=== PATIENT | male | born 1940 | race Caucasian/White ===

== ENCOUNTER 2020-09-02 15:22 | Observation (INO) ==
[2020-09-02] MEDS ORDERED: Ketorolac 30 MG/ML VIAL IVP ONE (15:25)
[2020-09-02] MEDS ORDERED: *HR* Metoprolol 5 MG/5 ML VIAL IVP ONE (15:25)
[2020-09-02] MEDS ORDERED: Nitroglycerin 1 INCH/GM PACKET TP ONE (15:25)
[2020-09-02] MEDS ORDERED: Aspirin 81 MG TAB.CHEW PO ONE (15:25)
[2020-09-02] MEDS ORDERED: Morphine Sulfate 2 MG/ML SYRINGE IVP ONE ×2 (15:25→15:28)
[2020-09-02] MEDS ORDERED: Ondansetron 4 MG/2 ML VIAL IVP ONE (15:25)
[2020-09-02] MEDS ORDERED: 0.9 % Sodium Chloride 500 ML IVC ONE (15:25)
[2020-09-02 15:52] LABS: Basophils % 0.3 %; Eosinophils % 0.1 %; Hematocrit 43.2 % (37.5-50.1); Hemoglobin 14.6 g/dL (12.9-16.9); INR 1.1; Immature Granulocytes % 0.5 % (0-4); Lymphocytes # 0.7 K/mcL (0.6-4.6); Lymphocytes % 6.3 %; Mean Corpuscular HGB Conc 33.8 g/dL (31.6-35.5); Mean Corpuscular Hemoglobin 27.3 pg (28.0-33.3); Mean Corpuscular Volume 80.9 fL (83.0-100.0); Mean Platelet Volume 9.9 fL (9.4-12.4); Monocytes # 0.2 K/mcL (0.0-1.3); Neutrophils # 10.1 K/mcL (1.6-8.9); Platelet Count 289 K/mcL (140-400); Prothrombin Time 12.5 Seconds (9.4-12.1); Red Blood Count 5.34 M/mcL (4.19-5.50); Red Cell Distribution Width 13.5 % (11.5-14.5); Segmented Neutrophils % 90.8 %; White Blood Count 11.1 K/mcL (4.3-11.1)
[2020-09-02 15:54] LABS: Activated Partial Thrombo Time 26.7 Seconds (26.0-36.0)
[2020-09-02 16:03] LABS: BUN/Creatinine Ratio 22 (6-26); Blood Urea Nitrogen 46 mg/dL (8-23); Calcium 9.4 mg/dL (8.6-10.3); Carbon Dioxide 22 mEq/L (23-29); Chloride 98 mEq/L (98-107); Glucose 375 mg/dL (70-105); Osmolality,Calculated 307 (280-300); Potassium 4.3 mEq/L (3.5-5.1); Sodium 135 mEq/L (136-145); Troponin I < 0.03 ng/mL (< 0.04); eGFR For African Americans 37 (> 60); eGFR For Non-African Americans 30 (> 60)
[2020-09-02] MEDS ORDERED: 0.9 % Sodium Chloride 1,000 ML IVC ONE (16:13)
[2020-09-02] MEDS ORDERED: *HR* Labetalol 20 MG/4 ML SYRINGE IVP ONE (17:35)
[2020-09-02 18:10] LABS: Bilirubin,Urine Negative (Negative); Blood,Urine Small (Negative); Clarity,Urine Clear (Clear); Color,Urine Yellow (Yellow); Glucose,Urine (UA) >=1000 mg/dL (Normal); Ketones,Urine 15 mg/dL (Negative); Leukocyte Esterase,Urine Negative (Negative); Nitrite,Urine Negative (Negative); PH,Urine 5.5 pH Units (5.0-8.0); Protein,Urine >=300 mg/dL (Neg-Trace); Urobilinogen,Urine Normal (Normal)
[2020-09-02 18:19] LABS: Budding Yeast,Urine Few per hpf (None Seen); Squamous Epithelial Cell,Urine Few per hpf (None-Few); WBC,Urine 0-3 per hpf (0-3)
[2020-09-02] MEDS ORDERED: 0.9 % Sodium Chloride 1,000 ML IVC SCH ×2 (21:15→22:03)
[2020-09-02] MEDS ORDERED: *HR* Dextrose 50 % in Water (Vial) 50 ML VIAL IVP PRN ×2 (21:32→22:03)
[2020-09-02] MEDS ORDERED: D5% in Water 1,000 ML IVC PRN ×2 (21:32→22:03)
[2020-09-02] MEDS ORDERED: Dextrose Gel 15 GM/37.5 ML TUBE PO PRN ×4 (21:32→22:03)
[2020-09-02] MEDS ORDERED: Ondansetron 4 MG/2 ML VIAL IVP PRN (22:03)
[2020-09-02] MEDS ORDERED: *HR* Promethazine 25 MG/ML VIAL IM PRN (22:03)
[2020-09-02] MEDS ORDERED: Ondansetron ODT 4 MG TAB.RAPDIS SL PRN (22:03)
[2020-09-02] MEDS ORDERED: Naloxone 0.4 MG/ML INJ IVP PRN (22:03)
[2020-09-02] MEDS: 0.9 % Sodium Chloride 2,000 ML IVC SCH (22:32)
[2020-09-03] MEDS ORDERED: Insulin LISPRO 300 UNITS/3 ML VIAL SUBQ SCH
[2020-09-03] MEDS: Insulin LISPRO 300 UNITS/3 ML VIAL SUBQ SCH ×3 (00:31→12:15)
[2020-09-03 03:13] LABS: Basophils % 0.2 %; Eosinophils % 0.1 %; Hematocrit 36.2 % (37.5-50.1); Hemoglobin 12.3 g/dL (12.9-16.9); Immature Granulocytes % 1.2 % (0-4); Lymphocytes # 0.9 K/mcL (0.6-4.6); Lymphocytes % 9.1 %; Mean Corpuscular Hemoglobin 27.7 pg (28.0-33.3); Mean Corpuscular Volume 81.5 fL (83.0-100.0); Mean Platelet Volume 9.7 fL (9.4-12.4); Monocytes # 0.7 K/mcL (0.0-1.3); Monocytes % 7.4 %; Neutrophils # 8.2 K/mcL (1.6-8.9); Platelet Count 203 K/mcL (140-400); Red Blood Count 4.44 M/mcL (4.19-5.50); Red Cell Distribution Width 13.8 % (11.5-14.5)
[2020-09-03 03:18] LABS: Calcium 8.4 mg/dL (8.6-10.3); Potassium 3.9 mEq/L (3.5-5.1)
[2020-09-03] MEDS: 0.9 % Sodium Chloride 2,000 ML IVC SCH (06:32)
[2020-09-03 06:47] VITALS: BP 160/67
== END 2020-09-03 13:00 | disposition home or self-care (01) ==
LOC: EMEROOGRE 15:22 → INPGRE 15:22
PROVIDERS: ADMIT Internal Medicine; ATTEND Internal Medicine

== ENCOUNTER 2020-11-15 08:43 | Inpatient (IN) ==
[2020-11-15] MEDS ORDERED: Dextrose Gel 15 GM/37.5 ML TUBE PO PRN ×2 (13:26)
[2020-11-15] MEDS ORDERED: D5% in Water 1,000 ML IVC PRN (13:26)
[2020-11-15] MEDS ORDERED: *HR* Dextrose 50 % in Water (Vial) 50 ML VIAL IVP PRN (13:26)
[2020-11-15] MEDS ORDERED: *HR* OxyCODONE Immed Rel 5 MG TABLET PO PRN ×2 (13:27→15:12)
[2020-11-15] MEDS ORDERED: Ondansetron ODT 4 MG TAB.RAPDIS SL PRN (13:27)
[2020-11-15] MEDS: Insulin LISPRO 300 UNITS/3 ML VIAL SUBQ SCH ×2 (16:47→21:16)
[2020-11-15] MEDS ORDERED: Insulin DETEMIR 100 UNIT/ML per UNIT SUBQ ONE (21:00)
[2020-11-15] MEDS: Apixaban 5 MG TABLET PO SCH (21:18)
[2020-11-15] MEDS: Melatonin 3 MG TABLET PO PRN (21:18)
[2020-11-15] MEDS: APREMILAST 30 MG PO SCH (21:24)
[2020-11-15] MEDS: Sennosides/Docusate Sodium TABLET PO SCH (21:25)
[2020-11-16 05:11] LABS: Basophils % 0.3 %; Eosinophils # 0.4 K/mcL (0.0-0.6); Eosinophils % 3.3 %; Hematocrit 28.9 % (37.5-50.1); Hemoglobin 9.3 g/dL (12.9-16.9); Immature Granulocytes % 0.7 % (0-4); Lymphocytes # 1.3 K/mcL (0.6-4.6); Lymphocytes % 11.6 %; Mean Corpuscular HGB Conc 32.2 g/dL (31.6-35.5); Monocytes # 0.7 K/mcL (0.0-1.3); Monocytes % 6.3 %; Platelet Count 344 K/mcL (140-400); Red Blood Count 3.32 M/mcL (4.19-5.50); Red Cell Distribution Width 18.3 % (11.5-14.5); Segmented Neutrophils % 77.8 %; White Blood Count 11.5 K/mcL (4.3-11.1)
[2020-11-16 05:28] LABS: Albumin 2.6 g/dL (3.5-5.7); Albumin/Globulin Ratio 0.8 (1.1-2.2); Bilirubin,Total 0.4 mg/dL (0.3-1.0); Calcium 8.6 mg/dL (8.6-10.3); Globulin 3.4 g/dL (2.4-3.5); Magnesium 1.7 mg/dL (1.6-2.6); Potassium 4.1 mEq/L (3.5-5.1)
[2020-11-16 08:09] LABS: Estimated Average Glucose 183 mg/dl
[2020-11-16] MEDS: Insulin LISPRO 300 UNITS/3 ML VIAL SUBQ SCH ×4 (09:22→20:16)
[2020-11-16] MEDS: Aspirin 81 MG TAB.CHEW PO SCH (09:23)
[2020-11-16] MEDS: Apixaban 5 MG TABLET PO SCH ×2 (09:23→20:30)
[2020-11-16] MEDS: Isosorbide MONOnitrate (24 HR) 30 MG TAB.ER.24H PO SCH (09:23)
[2020-11-16] MEDS: Sennosides/Docusate Sodium TABLET PO SCH ×2 (09:23→20:32)
[2020-11-16] MEDS: *HR* Amiodarone 200 MG TABLET PO SCH (09:23)
[2020-11-16] MEDS: APREMILAST 30 MG PO SCH ×2 (09:24→20:33)
[2020-11-16] MEDS: (Empagliflozin [Jardiance] 25 MG Tablet) PO SCH (09:24)
[2020-11-16] MEDS: OLANZapine 5 MG TAB.RAPDIS PO PRN (09:31)
[2020-11-16] MEDS: *HR* OxyCODONE Immed Rel 5 MG TABLET PO PRN ×2 (09:31→20:31)
[2020-11-16] MEDS: Insulin DETEMIR 100 UNIT/ML X5UNITS SUBQ SCH ×2 (09:32→20:33)
[2020-11-16] MEDS: Melatonin 3 MG TABLET PO PRN (20:32)
[2020-11-17] MEDS: *HR* OxyCODONE Immed Rel 5 MG TABLET PO PRN (04:11)
[2020-11-17] MEDS: Sennosides/Docusate Sodium TABLET PO SCH (07:46)
[2020-11-17] MEDS: Insulin LISPRO 300 UNITS/3 ML VIAL SUBQ SCH ×5 (07:52→20:23)
[2020-11-17] MEDS: Aspirin 81 MG TAB.CHEW PO SCH (07:52)
[2020-11-17] MEDS: *HR* Amiodarone 200 MG TABLET PO SCH (07:52)
[2020-11-17] MEDS: Isosorbide MONOnitrate (24 HR) 30 MG TAB.ER.24H PO SCH (07:52)
[2020-11-17] MEDS: Apixaban 5 MG TABLET PO SCH ×2 (07:52→20:22)
[2020-11-17] MEDS: APREMILAST 30 MG PO SCH (07:53)
[2020-11-17] MEDS: Insulin DETEMIR 100 UNIT/ML X5UNITS SUBQ SCH ×2 (07:53→20:23)
[2020-11-17] MEDS: (Empagliflozin [Jardiance] 25 MG Tablet) PO SCH (07:53)
[2020-11-17] MEDS: Melatonin 3 MG TABLET PO PRN (20:22)
[2020-11-18] MEDS: APREMILAST 30 MG PO SCH ×3 (05:45→21:59)
[2020-11-18] MEDS: Sennosides/Docusate Sodium TABLET PO SCH ×3 (05:45→21:59)
[2020-11-18 06:02] LABS: Basophils # 0.1 K/mcL (0.0-0.2); Basophils % 0.4 %; Eosinophils # 0.4 K/mcL (0.0-0.6); Hemoglobin 7.9 g/dL (12.9-16.9); Immature Granulocytes % 0.4 % (0-4); Lymphocytes # 1.1 K/mcL (0.6-4.6); Lymphocytes % 9.2 %; Mean Corpuscular HGB Conc 31.6 g/dL (31.6-35.5); Mean Corpuscular Volume 88.7 fL (83.0-100.0); Mean Platelet Volume 9.5 fL (9.4-12.4); Monocytes # 0.7 K/mcL (0.0-1.3); Monocytes % 5.5 %; Neutrophils # 9.9 K/mcL (1.6-8.9); Platelet Count 336 K/mcL (140-400); Red Blood Count 2.82 M/mcL (4.19-5.50); Red Cell Distribution Width 18.5 % (11.5-14.5); Segmented Neutrophils % 81.5 %; White Blood Count 12.2 K/mcL (4.3-11.1)
[2020-11-18 06:39] LABS: Calcium 7.9 mg/dL (8.6-10.3); Potassium 3.9 mEq/L (3.5-5.1)
[2020-11-18] MEDS: Insulin LISPRO 300 UNITS/3 ML VIAL SUBQ SCH ×4 (07:55→20:09)
[2020-11-18] MEDS: Aspirin 81 MG TAB.CHEW PO SCH (08:44)
[2020-11-18] MEDS: *HR* Amiodarone 200 MG TABLET PO SCH (08:44)
[2020-11-18] MEDS: Insulin DETEMIR 100 UNIT/ML X5UNITS SUBQ SCH ×2 (08:44→20:08)
[2020-11-18] MEDS: Isosorbide MONOnitrate (24 HR) 30 MG TAB.ER.24H PO SCH (08:44)
[2020-11-18] MEDS: Apixaban 5 MG TABLET PO SCH ×2 (08:44→20:08)
[2020-11-18] MEDS: (Empagliflozin [Jardiance] 25 MG Tablet) PO SCH (08:44)
[2020-11-18 16:18] LABS: Hematocrit 23.7 % (37.5-50.1); Hemoglobin 7.4 g/dL (12.9-16.9)
[2020-11-18 19:13] LABS: Iron < 10 mcg/dL (65-175); Transferrin 151 mg/dL (203-362)
[2020-11-18 19:38] LABS: Folate 8.6 ng/mL (3.0-16.0)
[2020-11-18] MEDS: Melatonin 3 MG TABLET PO PRN (20:08)
[2020-11-18] MEDS: *HR* OxyCODONE Immed Rel 5 MG TABLET PO PRN (21:59)
[2020-11-19] MEDS: *HR* OxyCODONE Immed Rel 5 MG TABLET PO PRN (06:08)
[2020-11-19 06:09] LABS: Basophils % 0.4 %; Eosinophils # 0.4 K/mcL (0.0-0.6); Eosinophils % 4.5 %; Hematocrit 24.3 % (37.5-50.1); Hemoglobin 7.6 g/dL (12.9-16.9); Immature Granulocytes % 0.4 % (0-4); Lymphocytes # 1.1 K/mcL (0.6-4.6); Lymphocytes % 12.1 %; Mean Corpuscular HGB Conc 31.3 g/dL (31.6-35.5); Mean Corpuscular Hemoglobin 27.8 pg (28.0-33.3); Mean Platelet Volume 9.7 fL (9.4-12.4); Monocytes # 0.6 K/mcL (0.0-1.3); Monocytes % 6.4 %; Neutrophils # 7.1 K/mcL (1.6-8.9); Platelet Count 322 K/mcL (140-400); Red Blood Count 2.73 M/mcL (4.19-5.50); Red Cell Distribution Width 18.1 % (11.5-14.5); Segmented Neutrophils % 76.2 %; White Blood Count 9.3 K/mcL (4.3-11.1)
[2020-11-19] MEDS: Insulin LISPRO 300 UNITS/3 ML VIAL SUBQ SCH ×2 (09:22→21:13)
[2020-11-19] MEDS: (Empagliflozin [Jardiance] 25 MG Tablet) PO SCH (09:23)
[2020-11-19] MEDS ORDERED: Sennosides/Docusate Sodium TABLET PO PRN (10:21)
[2020-11-19] MEDS: Aspirin 81 MG TAB.CHEW PO SCH (10:25)
[2020-11-19] MEDS: *HR* Amiodarone 200 MG TABLET PO SCH (10:25)
[2020-11-19] MEDS: Isosorbide MONOnitrate (24 HR) 30 MG TAB.ER.24H PO SCH (10:25)
[2020-11-19] MEDS: Apixaban 5 MG TABLET PO SCH ×2 (10:25→21:10)
[2020-11-19] MEDS: APREMILAST 30 MG PO SCH ×2 (10:26→21:13)
[2020-11-19] MEDS: Sennosides/Docusate Sodium TABLET PO SCH (10:27)
[2020-11-19] MEDS: Insulin DETEMIR 100 UNIT/ML X5UNITS SUBQ SCH ×2 (10:41→21:12)
[2020-11-19] MEDS: Melatonin 3 MG TABLET PO PRN (21:10)
[2020-11-20] MEDS: Insulin LISPRO 300 UNITS/3 ML VIAL SUBQ SCH ×6 (00:44→20:56)
[2020-11-20] MEDS: Aspirin 81 MG TAB.CHEW PO SCH (08:38)
[2020-11-20] MEDS: Apixaban 5 MG TABLET PO SCH ×2 (08:38→20:54)
[2020-11-20] MEDS: (Empagliflozin [Jardiance] 25 MG Tablet) PO SCH (08:39)
[2020-11-20] MEDS: APREMILAST 30 MG PO SCH ×2 (08:39→22:23)
[2020-11-20] MEDS: Isosorbide MONOnitrate (24 HR) 30 MG TAB.ER.24H PO SCH (08:39)
[2020-11-20] MEDS: Insulin DETEMIR 100 UNIT/ML X5UNITS SUBQ SCH ×2 (08:39→20:56)
[2020-11-20] MEDS: *HR* Amiodarone 200 MG TABLET PO SCH (08:39)
[2020-11-20] MEDS ORDERED: (Dulaglutide [Trulicity] 1.5 MG/0.5 ML Pen.Injctr) SQ SCH (09:00)
[2020-11-20 11:27] LABS: Basophils # 0.1 K/mcL (0.0-0.2); Basophils % 0.5 %; Eosinophils # 0.4 K/mcL (0.0-0.6); Eosinophils % 3.9 %; Hematocrit 27.2 % (37.5-50.1); Hemoglobin 8.7 g/dL (12.9-16.9); Immature Granulocytes % 0.4 % (0-4); Lymphocytes # 1.1 K/mcL (0.6-4.6); Lymphocytes % 10.2 %; Mean Corpuscular Hemoglobin 28.3 pg (28.0-33.3); Mean Corpuscular Volume 88.6 fL (83.0-100.0); Mean Platelet Volume 9.3 fL (9.4-12.4); Monocytes # 0.5 K/mcL (0.0-1.3); Monocytes % 5.2 %; Neutrophils # 8.3 K/mcL (1.6-8.9); Platelet Count 382 K/mcL (140-400); Red Blood Count 3.07 M/mcL (4.19-5.50); Red Cell Distribution Width 17.9 % (11.5-14.5); Segmented Neutrophils % 79.8 %; White Blood Count 10.4 K/mcL (4.3-11.1)
[2020-11-20 11:44] LABS: Calcium 8.7 mg/dL (8.6-10.3); Potassium 4.4 mEq/L (3.5-5.1)
[2020-11-20] MEDS: OLANZapine 5 MG TAB.RAPDIS PO PRN (20:55)
[2020-11-20] MEDS: *HR* OxyCODONE Immed Rel 5 MG TABLET PO PRN (23:05)
[2020-11-21] MEDS: Insulin LISPRO 300 UNITS/3 ML VIAL SUBQ SCH ×4 (08:56→19:57)
[2020-11-21] MEDS: Insulin DETEMIR 100 UNIT/ML X5UNITS SUBQ SCH ×2 (09:03→19:57)
[2020-11-21] MEDS: Apixaban 5 MG TABLET PO SCH ×2 (09:03→19:57)
[2020-11-21] MEDS: APREMILAST 30 MG PO SCH ×2 (09:03→20:04)
[2020-11-21] MEDS: *HR* Amiodarone 200 MG TABLET PO SCH (09:03)
[2020-11-21] MEDS: Isosorbide MONOnitrate (24 HR) 30 MG TAB.ER.24H PO SCH (09:03)
[2020-11-21] MEDS: Aspirin 81 MG TAB.CHEW PO SCH (09:03)
[2020-11-21] MEDS: (Empagliflozin [Jardiance] 25 MG Tablet) PO SCH (09:03)
[2020-11-21] MEDS: polyethylene glycoL 3350 17 GM POWD.PACK PO SCH (17:12)
[2020-11-21] MEDS: *HR* OxyCODONE Immed Rel 5 MG TABLET PO PRN (19:56)
[2020-11-21] MEDS: Melatonin 3 MG TABLET PO PRN (19:57)
[2020-11-21] MEDS: Sennosides/Docusate Sodium TABLET PO SCH (19:57)
[2020-11-21] MEDS: OLANZapine 5 MG TAB.RAPDIS PO PRN (19:57)
[2020-11-22] MEDS: Isosorbide MONOnitrate (24 HR) 30 MG TAB.ER.24H PO SCH (08:42)
[2020-11-22] MEDS: Aspirin 81 MG TAB.CHEW PO SCH (08:42)
[2020-11-22] MEDS: Sennosides/Docusate Sodium TABLET PO SCH ×2 (08:42→19:53)
[2020-11-22] MEDS: *HR* Amiodarone 200 MG TABLET PO SCH (08:42)
[2020-11-22] MEDS: Apixaban 5 MG TABLET PO SCH ×2 (08:42→19:53)
[2020-11-22] MEDS: Insulin LISPRO 300 UNITS/3 ML VIAL SUBQ SCH ×4 (08:45→20:41)
[2020-11-22] MEDS: polyethylene glycoL 3350 17 GM POWD.PACK PO SCH (08:45)
[2020-11-22] MEDS ORDERED: polyethylene glycoL 3350 17 GM POWD.PACK PO SCH (09:00)
[2020-11-22] MEDS: Insulin DETEMIR 100 UNIT/ML X5UNITS SUBQ SCH ×2 (10:09→19:54)
[2020-11-22] MEDS: APREMILAST 30 MG PO SCH ×2 (10:11→19:57)
[2020-11-22] MEDS: (Empagliflozin [Jardiance] 25 MG Tablet) PO SCH (10:12)
[2020-11-22] MEDS: OLANZapine 5 MG TAB.RAPDIS PO PRN (19:53)
[2020-11-22] MEDS: *HR* OxyCODONE Immed Rel 5 MG TABLET PO PRN (19:53)
[2020-11-22] MEDS: Melatonin 3 MG TABLET PO PRN (19:54)
[2020-11-23] MEDS: *HR* Amiodarone 200 MG TABLET PO SCH (09:33)
[2020-11-23] MEDS: Sennosides/Docusate Sodium TABLET PO SCH ×2 (09:33→19:33)
[2020-11-23] MEDS: Apixaban 5 MG TABLET PO SCH ×2 (09:34→19:33)
[2020-11-23] MEDS: polyethylene glycoL 3350 17 GM POWD.PACK PO SCH ×2 (09:34→09:46)
[2020-11-23] MEDS: Aspirin 81 MG TAB.CHEW PO SCH (09:34)
[2020-11-23] MEDS: Isosorbide MONOnitrate (24 HR) 30 MG TAB.ER.24H PO SCH (09:34)
[2020-11-23] MEDS: APREMILAST 30 MG PO SCH ×2 (09:39→19:38)
[2020-11-23] MEDS: Insulin LISPRO 300 UNITS/3 ML VIAL SUBQ SCH ×4 (09:39→19:34)
[2020-11-23] MEDS: Insulin DETEMIR 100 UNIT/ML X5UNITS SUBQ SCH ×2 (09:39→19:34)
[2020-11-23] MEDS: (Empagliflozin [Jardiance] 25 MG Tablet) PO SCH (09:39)
[2020-11-23] MEDS: OLANZapine 5 MG TAB.RAPDIS PO PRN (19:33)
[2020-11-23] MEDS: Melatonin 3 MG TABLET PO PRN (19:34)
[2020-11-23] MEDS: *HR* OxyCODONE Immed Rel 5 MG TABLET PO PRN (19:34)
[2020-11-24 06:09] LABS: Basophils % 0.6 %; Eosinophils # 0.3 K/mcL (0.0-0.6); Eosinophils % 4.8 %; Hematocrit 25.5 % (37.5-50.1); Immature Granulocytes % 0.3 % (0-4); Lymphocytes % 13.9 %; Mean Corpuscular HGB Conc 31.4 g/dL (31.6-35.5); Mean Corpuscular Hemoglobin 27.4 pg (28.0-33.3); Mean Corpuscular Volume 87.3 fL (83.0-100.0); Mean Platelet Volume 9.8 fL (9.4-12.4); Monocytes # 0.7 K/mcL (0.0-1.3); Monocytes % 9.7 %; Neutrophils # 4.9 K/mcL (1.6-8.9); Platelet Count 297 K/mcL (140-400); Red Blood Count 2.92 M/mcL (4.19-5.50); Red Cell Distribution Width 17.5 % (11.5-14.5); Segmented Neutrophils % 70.7 %; White Blood Count 6.9 K/mcL (4.3-11.1)
[2020-11-24 07:18] LABS: Calcium 8.7 mg/dL (8.6-10.3); Potassium 3.8 mEq/L (3.5-5.1)
[2020-11-24] MEDS: Insulin DETEMIR 100 UNIT/ML X5UNITS SUBQ SCH ×2 (08:43→19:47)
[2020-11-24] MEDS: polyethylene glycoL 3350 17 GM POWD.PACK PO SCH (08:43)
[2020-11-24] MEDS: Isosorbide MONOnitrate (24 HR) 30 MG TAB.ER.24H PO SCH (08:43)
[2020-11-24] MEDS: Sennosides/Docusate Sodium TABLET PO SCH ×2 (08:43→19:48)
[2020-11-24] MEDS: Apixaban 5 MG TABLET PO SCH ×2 (08:44→19:48)
[2020-11-24] MEDS: Insulin LISPRO 300 UNITS/3 ML VIAL SUBQ SCH ×4 (08:44→19:48)
[2020-11-24] MEDS: Aspirin 81 MG TAB.CHEW PO SCH (08:44)
[2020-11-24] MEDS: *HR* Amiodarone 200 MG TABLET PO SCH (08:44)
[2020-11-24] MEDS ORDERED: (Dulaglutide [Trulicity] 1.5 MG/0.5 ML Pen.Injctr) SQ SCH (09:00)
[2020-11-24] MEDS: APREMILAST 30 MG PO SCH ×2 (10:56→19:51)
[2020-11-24] MEDS: (Empagliflozin [Jardiance] 25 MG Tablet) PO SCH (10:58)
[2020-11-24] MEDS: Acetaminophen 325 MG TABLET PO PRN (17:13)
[2020-11-24] MEDS: OLANZapine 5 MG TAB.RAPDIS PO PRN (19:48)
[2020-11-24] MEDS: *HR* OxyCODONE Immed Rel 5 MG TABLET PO PRN (19:49)
[2020-11-25] MEDS: *HR* OxyCODONE Immed Rel 5 MG TABLET PO PRN (04:23)
[2020-11-25] MEDS: Insulin LISPRO 300 UNITS/3 ML VIAL SUBQ SCH ×4 (08:27→22:39)
[2020-11-25] MEDS: Nystatin POWDER 30 GM BOTTLE TP SCH ×3 (08:27→22:39)
[2020-11-25] MEDS: (Empagliflozin [Jardiance] 25 MG Tablet) PO SCH (08:28)
[2020-11-25] MEDS: Insulin DETEMIR 100 UNIT/ML X5UNITS SUBQ SCH ×2 (09:18→22:39)
[2020-11-25] MEDS: Apixaban 5 MG TABLET PO SCH ×2 (09:18→22:39)
[2020-11-25] MEDS: Isosorbide MONOnitrate (24 HR) 30 MG TAB.ER.24H PO SCH (09:18)
[2020-11-25] MEDS: *HR* Amiodarone 200 MG TABLET PO SCH (09:18)
[2020-11-25] MEDS: polyethylene glycoL 3350 17 GM POWD.PACK PO SCH (09:18)
[2020-11-25] MEDS: Sennosides/Docusate Sodium TABLET PO SCH ×2 (09:18→22:40)
[2020-11-25] MEDS: Aspirin 81 MG TAB.CHEW PO SCH (09:18)
[2020-11-25] MEDS: APREMILAST 30 MG PO SCH ×2 (10:58→22:40)
[2020-11-25] MEDS ORDERED: 0.9 % Sodium Chloride 1,000 ML IVC SCH (18:45)
[2020-11-26] MEDS: Sennosides/Docusate Sodium TABLET PO SCH ×3 (00:33→22:17)
[2020-11-26] MEDS: OLANZapine 5 MG TAB.RAPDIS PO PRN (00:41)
[2020-11-26] MEDS: Acetaminophen 325 MG TABLET PO PRN (00:41)
[2020-11-26] MEDS: Insulin LISPRO 300 UNITS/3 ML VIAL SUBQ SCH (07:45)
[2020-11-26] MEDS: Isosorbide MONOnitrate (24 HR) 30 MG TAB.ER.24H PO SCH (07:56)
[2020-11-26] MEDS: Aspirin 81 MG TAB.CHEW PO SCH (07:57)
[2020-11-26] MEDS: Nystatin POWDER 30 GM BOTTLE TP SCH ×2 (07:57→22:18)
[2020-11-26] MEDS: Apixaban 5 MG TABLET PO SCH ×2 (07:57→22:17)
[2020-11-26] MEDS: *HR* Amiodarone 200 MG TABLET PO SCH (07:57)
[2020-11-26] MEDS: polyethylene glycoL 3350 17 GM POWD.PACK PO SCH ×2 (07:57→08:29)
[2020-11-26] MEDS: (Empagliflozin [Jardiance] 25 MG Tablet) PO SCH (07:58)
[2020-11-26] MEDS: Insulin DETEMIR 100 UNIT/ML X5UNITS SUBQ SCH (08:12)
[2020-11-26] MEDS: APREMILAST 30 MG PO SCH ×2 (08:18→22:22)
[2020-11-26] MEDS: *HR* OxyCODONE Immed Rel 5 MG TABLET PO PRN (22:16)
[2020-11-26] MEDS: Melatonin 3 MG TABLET PO PRN (22:17)
[2020-11-27] MEDS: Apixaban 5 MG TABLET PO SCH ×2 (07:40→22:29)
[2020-11-27] MEDS: *HR* OxyCODONE Immed Rel 5 MG TABLET PO PRN ×2 (07:40→22:28)
[2020-11-27] MEDS: *HR* Amiodarone 200 MG TABLET PO SCH (07:40)
[2020-11-27] MEDS: Isosorbide MONOnitrate (24 HR) 30 MG TAB.ER.24H PO SCH (07:40)
[2020-11-27] MEDS: Aspirin 81 MG TAB.CHEW PO SCH (07:40)
[2020-11-27] MEDS: Metoprolol XL (24 HR) Succ 50 MG TAB.ER.24H PO SCH (07:40)
[2020-11-27] MEDS: polyethylene glycoL 3350 17 GM POWD.PACK PO SCH (07:42)
[2020-11-27] MEDS: Nystatin POWDER 30 GM BOTTLE TP SCH ×2 (07:42→22:29)
[2020-11-27] MEDS: Sennosides/Docusate Sodium TABLET PO SCH ×2 (07:43→22:29)
[2020-11-27] MEDS: APREMILAST 30 MG PO SCH ×2 (07:44→22:30)
[2020-11-27] MEDS: Insulin DETEMIR 100 UNIT/ML X5UNITS SUBQ SCH (07:57)
[2020-11-27] MEDS: (Empagliflozin [Jardiance] 25 MG Tablet) PO SCH (10:10)
[2020-11-27] MEDS ORDERED: Simethicone 80 MG TAB.CHEW PO PRN (12:57)
[2020-11-27] MEDS: Melatonin 3 MG TABLET PO PRN (22:29)
[2020-11-28 07:31] VITALS: PULSE 67; RESP 15; TEMP 98.4; O2SAT 96
[2020-11-28] MEDS: Isosorbide MONOnitrate (24 HR) 30 MG TAB.ER.24H PO SCH (08:13)
[2020-11-28] MEDS: Aspirin 81 MG TAB.CHEW PO SCH (08:13)
[2020-11-28] MEDS: *HR* Amiodarone 200 MG TABLET PO SCH (08:13)
[2020-11-28] MEDS: Metoprolol XL (24 HR) Succ 50 MG TAB.ER.24H PO SCH (08:14)
[2020-11-28] MEDS: Apixaban 5 MG TABLET PO SCH (08:14)
[2020-11-28] MEDS: Sennosides/Docusate Sodium TABLET PO SCH (08:14)
[2020-11-28] MEDS: Nystatin POWDER 30 GM BOTTLE TP SCH (08:19)
[2020-11-28] MEDS: polyethylene glycoL 3350 17 GM POWD.PACK PO SCH (08:19)
[2020-11-28] MEDS: (Empagliflozin [Jardiance] 25 MG Tablet) PO SCH (08:20)
[2020-11-28] MEDS: APREMILAST 30 MG PO SCH (08:22)
[2020-11-28] MEDS: Insulin DETEMIR 100 UNIT/ML X5UNITS SUBQ SCH (08:22)
[2020-11-28] MEDS: Insulin LISPRO 300 UNITS/3 ML VIAL SUBQ SCH (08:53)
[2020-11-28 11:10] VITALS: BP 163/76
[2020-11-28] MEDS ORDERED: Simethicone 80 MG TAB.CHEW PO PRN (13:19)
== END 2020-11-28 15:18 | DRG 945 ==
LOC: INPGRE 13:18
PROVIDERS: ADMIT Family Medicine; ATTEND Family Medicine